=== PATIENT | male | born 1990 | race Caucasian/White ===

== ENCOUNTER 2019-11-13 07:46 | Emergency (ER) | payer BC ==
[~2019-11-13] VITALS: Ht 185.4 cm; Wt 143.2 kg
[~2019-11-13 07:46] MED LIST: BENADRYL; LORTAB 5/500 501 TAB PO; NAPROXEN EC500 MG PO; ZOLOFT50 MG PO
[2019-11-13 07:54] VITALS: TEMP 98.1
[2019-11-13] MEDS ORDERED: AMOXICILLIN875 MG PO (08:21)
[2019-11-13 08:53] VITALS: BP 147/91; PULSE 101
== END 2019-11-13 08:53 | disposition home or self-care (01) ==
LOC: COL.ER 07:46
DX: H66.002 Acute suppurative otitis media without spontaneous rupture of ear drum, left ear (principal); H61.21 Impacted cerumen, right ear